=== PATIENT | female | born 1955 | race Caucasian/White ===

== ENCOUNTER 2020-03-10 13:55 | Emergency (ER) | payer OTHER ==
[~2020-03-10] VITALS: Ht 167.6 cm; Wt 208.7 kg
[2020-03-10] MEDS ORDERED: ASA81BEC PO (14:03)
[2020-03-10] MEDS ORDERED: AZITHROMYCIN500 MG PO (14:04)
[2020-03-10] MEDS ORDERED: VITAMIN D325 MC3 PO (14:06)
[2020-03-10] MEDS ORDERED: LOVENOX100 MG/1 M SUBQ (14:06)
[2020-03-10] MEDS ORDERED: FAMOTIDINE 20 M20 MG PO (14:07)
[2020-03-10] MEDS ORDERED: COZAAR 25 MG TA25 M1 PO (14:08)
[2020-03-10] MEDS ORDERED: LORATIDINE 10 M10 M1 PO (14:08)
[2020-03-10 14:29] LABS: ABSOLUTE NEUTROPHILS 7.7 thou/uL (1.4-8.2); BASOPHILS 0.5 % (0.0-2.0); EOSINOPHILS 0.1 % (0.0-3.0); HEMATOCRIT 37.4 % (37.0-47.0); LYMPHOCYTES 16.2 % (24.0-44.0); MCH 28.1 pg (26.0-34.0); MCHC 32.1 g/dL (28.0-37.0); MCV 87.4 fL (80.0-100.0); PLATELET COUNT 180 thou/uL (150-400); POLYS 77.2 % (36.0-66.0); RBC 4.28 mil/uL (4.20-5.00); RDW 15.1 % (10.5-14.5)
[2020-03-10 14:39] LABS: ALBUMIN 2.9 g/dL (3.4-5.0); POTASSIUM 4.4 mmol/L (3.5-5.1); TOTAL BILIRUBIN 0.6 mg/dL (0.2-1.0); TOTAL PROTEIN 6.1 g/dL (6.4-8.2)
[2020-03-10 14:41] LABS: CALCIUM 8.3 mg/dL (8.5-10.1)
[2020-03-10 14:45] LABS: INR 2.1; PROTIME 21.6 Seconds (9.3-11.4)
[2020-03-10] MEDS ORDERED: ANUSOL-HC25 MG RECTAL (16:25)
[2020-03-10] MEDS ORDERED: HYDROCORTISONE30 G9 RECTAL (16:25)
[2020-03-10 17:21] VITALS: BP 138/63
== END 2020-03-10 19:21 ==
LOC: ER 13:55
PROVIDERS: Emergency Medicine
DX: K64.9 Unspecified hemorrhoids (principal); R30.9 Painful micturition, unspecified; I26.99 Other pulmonary embolism without acute cor pulmonale; Z86.711 Personal history of pulmonary embolism; Z90.711 Acquired absence of uterus with remaining cervical stump; I10 Essential (primary) hypertension; E78.5 Hyperlipidemia, unspecified; Z79.82 Long term (current) use of aspirin; Z79.899 Other long term (current) drug therapy; Z88.1 Allergy status to other antibiotic agents; Z88.8 Allergy status to other drugs, medicaments and biological substances; Z88.0 Allergy status to penicillin; Z79.01 Long term (current) use of anticoagulants